=== PATIENT | female | born 1965 | race African-American/Black ===

== ENCOUNTER 2017-02-17 20:52 | Emergency (ER) | payer OTHER ==
[~2017-02-17] VITALS: Ht 167.6 cm; Wt 93.7 kg
--- NOTE | ~2017-02-17 | EKG ---
[place] [address] [address] [facility] [employer] [place] [address] ELECTROCARDIOGRAM REPORT Name: ISIAH WHITTEN Room #: DEP CLIF Larry#: [id number] Admission: 02/17/17 Attend Phys: Discharge: 02/18/17 Date of : 65 Report #: [id number] THIS REPORT FOR: //name// [facility] ED Test Date: 2017-02-17 Test Time: 21:23:22 Pat Name: ISIAH WHITTEN Department: Room: Gender: F [employer]: [id number] : 1965 Requested By: Sunny Darden Order Number: [id number] MD: Mark Crawley Measurements Intervals Stuart Rate: 77 P: 46 PA: 132 QRS: 14 QRSD: 91 T: 14 QT: 381 QTc: 432 Interpretive Statements Sinus rhythm Nonspecific T wave abnormality No previous ECG available for comparison Electronically Signed On 02-18-2017 8:26:38 CDT by Mark Crawley [email or web address] <ELECTRONICALLY SIGNED> By: Mark Crawley MD, [facility] 02/18/17 0826 [id number] 22 Mark Crawley MD, FACC /EPI
[2017-02-17] MEDS ORDERED: WELLBUTRIN XL300 MG PO (21:46)
[2017-02-17] MEDS ORDERED: VITAMIN D2000 UNIT PO (21:47)
[2017-02-17] MEDS ORDERED: PEPCID20 MG PO (21:48)
[2017-02-17] MEDS ORDERED: DEPAKOTE125 MG PO (21:48)
[2017-02-17] MEDS ORDERED: HYDROCODON-ACE1 EAC7 PO (21:49)
[2017-02-17] MEDS ORDERED: LORATIDINE 10 M10 M1 PO (21:52)
[2017-02-17] MEDS ORDERED: LEVOTHYROXIN0.025 MG PO (21:52)
[2017-02-17] MEDS ORDERED: OMEPRAZOLE20 M2 PO (21:52)
[2017-02-17] MEDS ORDERED: OXYBUTYNIN 5 MG5 M2 PO (21:53)
[2017-02-17] MEDS ORDERED: METAMUCIL PAC1 UDPKT PO (21:53)
[2017-02-17] MEDS ORDERED: RISPERDAL0.5 MG PO (21:54)
[2017-02-17] MEDS ORDERED: ARTHRITIS PAIN M3 O1 TOP (21:55)
[2017-02-17 22:01] LABS: CALCIUM 9.3 mg/dL (8.5-10.1); CREATININE 2.9 mg/dL (0.6-1.0); POTASSIUM 3.8 mmol/L (3.5-5.1)
[2017-02-17 22:09] LABS: APTT 21.7 Seconds (24.5-32.8); INR 1.8; PROTIME 18.3 Seconds (9.3-11.4)
[2017-02-17 22:24] LABS: BASOPHILS 0.5 % (0.0-2.0); EOSINOPHILS 2.6 % (0.0-3.0); HEMATOCRIT 21.2 % (37.0-47.0); HEMOGLOBIN 7.2 gm/dL (12.0-15.0); LYMPHOCYTES 17.9 % (24.0-44.0); MCV 82.3 fL (80.0-100.0); MONOCYTES 7.1 % (1.0-8.0); PLATELET COUNT 326 thou/uL (150-400); POLYS 71.9 % (36.0-66.0); RBC 2.58 mil/uL (4.20-5.00); RDW 15.2 % (10.5-14.5); WBC 11.2 thou/uL (4.0-11.0)
[2017-02-17 22:25] LABS: MANUAL DIFF NO
[2017-02-18 01:53] VITALS: BP 98/54
== END 2017-02-18 01:53 | disposition home or self-care (01) ==
LOC: ER 20:52
PROVIDERS: Emergency Medicine
DX: D64.9 Anemia, unspecified (principal); R19.00 Intra-abdominal and pelvic swelling, mass and lump, unspecified site; G89.29 Other chronic pain; M54.9 Dorsalgia, unspecified; F32.9 Major depressive disorder, single episode, unspecified; K21.9 Gastro-esophageal reflux disease without esophagitis; E03.9 Hypothyroidism, unspecified; Z86.73 Personal history of transient ischemic attack (TIA), and cerebral infarction without residual deficits; Z88.8 Allergy status to other drugs, medicaments and biological substances; Z88.2 Allergy status to sulfonamides